=== PATIENT | male | born 1985 | race Caucasian/White ===

== ENCOUNTER 2017-10-26 16:03 | Inpatient (IN) | payer MEDICAID ==
[~2017-10-26] VITALS: Ht 172.7 cm; Wt 195.5 kg
[2017-10-26] VITALS: BP 114/54
[2017-10-26 16:13] VITALS: BP 136/65
--- NOTE | 2017-10-26 16:20 | NUR ---
32/M BIB SELF C/O INTERMITENT NON PRODUCTIVE COUGH X 4DAYS. REFERRED BY [facility] D/T LOW SPO2 CONCERNED FOR POSSIBLE PNA, HEMOPTYSIS STARTED ON TUESDAY TIL TUESDAY; DENIES HEMOPTYSIS TODAY; DENIES SOB, OR CP.DENIES N/V/D; SKIN IS PINK/WARM/DRY; AAOX4 WITH EVEN AND STEADY GAIT; LUNGS CLEAR BL. PATIENT STATES PAIN OF 0/10 AT THIS TIME. PATIENT POSITIONED FOR COMFORT; HOB ELEVATED; BEDRAILS UP X2; BED DOWN. ER MD MADE AWARE OF PT STATUS.
--- NOTE | 2017-10-26 16:20 | NUR ---
Note undone in EDM - 10/26/17 at 1645 by [email or web address] /M BIB SELF C/O INTERMITENT NON PRODUCTIVE COUGH X 4DAYS. REFERRED BY [facility] D/T LOW SPO2 CONCERNED FOR POSSIBLE PNA, HEMOPTYSIS STARTED ON TUESDAY TIL TUESDAY; DENIES HEMOPTYSIS TODY; DENIES SOB, OR CP. DENIES N/V/D; SKIN IS PINK/WARM/DRY; AAOX4 WITH EVEN AND STEADY GAIT; LUNGS CLEAR BL. PATIENT STATES PAIN OF 0/10 AT THIS TIME. PATIENT POSITIONED FOR COMFORT; HOB ELEVATED; BEDRAILS UP X2; BED DOWN. ER MADE AWARE OF PT STATUS.
--- NOTE | 2017-10-26 16:44 | NUR ---
Patient being evaluated by DR GARCIA at bedside.
--- NOTE | 2017-10-26 17:05 | NUR ---
LAB AT BEDSIDE.
[2017-10-26 17:17] LABS: BASOPHILS # (AUTO) 0.9 K/uL (0.00-0.22); EOSINOPHILS # (AUTO) 0.2 K/uL (0-0.4); HEMATOCRIT 45.7 % (36-52); HEMOGLOBIN 14.7 g/dL (12.0-18.0); LYMPHOCYTES # (AUTO) 2.5 K/uL (2.0-11.5); MEAN CORPUSCULAR HEMOGLOBIN 25 pg (27-31); MEAN CORPUSCULAR HGB CONC 32 g/dL (33-37); MEAN CORPUSCULAR VOLUME 77 fL (80-94); MONOCYTES # (AUTO) 0.9 K/uL (0.8-1.0); NEUTROPHILS # (AUTO) 14.8 K/uL (1.8-7.7); PLATELET COUNT (AUTO) 331 K/uL (140-450); RED BLOOD CELL COUNT(AUTO) 5.92 MIL/uL (4.20-6.10); RED CELL DISTRIBUTION WIDTH 14.9 % (11.6-13.7); WHITE BLOOD COUNT (AUTO) 19.3 K/uL (4.8-10.8)
--- NOTE | 2017-10-26 17:20 | NUR ---
X RAY AT BEDSIDE
[2017-10-26 17:28] LABS: PROTHROMBIN TIME 11.2 secs (10.8-13.4)
[2017-10-26 17:30] LABS: APPEARANCE,URINE CLEAR (CLEAR); BILIRUBIN,URINE NEGATIVE (NEGATIVE); BLOOD, URINE NEGATIVE (NEGATIVE); COLOR,URINE YELLOW (YELLOW); LEUKOCYTE ESTERASE ,URINE NEGATIVE (NEGATIVE); NITRITE, URINE NEGATIVE (NEGATIVE); PH,URINE 6.5 (5.0-9.0); UGLUCOSE NEGATIVE (NEGATIVE)
[2017-10-26] MEDS ORDERED: AZITHROMYCIN 500 MG in DEXTROSE 5% 250 ML IV ONE (17:30)
[2017-10-26 17:33] LABS: ALBUMIN 2.8 g/dL (3.4-5.0); ANION GAP 12.5 (8-16); CARBON DIOXIDE 27.1 mmol/L (21-32); CREATININE 0.9 mg/dL (0.7-1.3); POTASSIUM 3.6 mmol/L (3.5-5.1); TOTAL BILIRUBIN 0.7 mg/dL (0.0-1.0)
[2017-10-26] MEDS ORDERED: cefTRIAXone 1,000 MG VIAL ONE (17:34)
[2017-10-26] MEDS ORDERED: AZITHROMYCIN 500 MG INJ VIAL IV ONE (17:34)
[2017-10-26] MEDS ORDERED: ONDANSETRON 4 MG/2 ML VIAL IM/IVP PRN (17:40)
[2017-10-26] MEDS ORDERED: HYDROcodone/APAP 7.5/325 MG 1 TAB PO PRN (17:40)
[2017-10-26] MEDS ORDERED: DOCUSATE SODIUM 100 MG GELCAP PO PRN (17:40)
[2017-10-26] MEDS ORDERED: ACETAMINOPHEN 325 MG TAB PO PRN (17:40)
[2017-10-26] MEDS ORDERED: IPRATROPIUM 0.02% 0.5 MG/2.5 ML NEBU INH PRN (17:50)
[2017-10-26] MEDS ORDERED: ALBUTEROL 0.083% 2.5 MG/3 ML NEBU INH PRN (17:50)
[2017-10-26] MEDS ORDERED: ASPIRIN 325 MG TAB PO ONE (17:55)
[2017-10-26] MEDS ORDERED: IPRATROPIUM 0.02% 0.5 MG/2.5 ML NEBU INH SCH (18:00)
--- NOTE | 2017-10-26 18:20 | NUR ---
RECEIVED PATIENT VIA GURNEY FROM ER. GOT BEDSIDE REPORT FROM [employer] SPECIALIST. PATIENT IS AMBULATORY, WALKED FROM [facility] TO BED. PATIENT IS ON 2 L NASAL CANNULA, NO SIGNS AND SYMPTOMS OF ACUTE RESPIRATORY DISTRESS NOTED AT THIS TIME. HAS IV TO RIGHT HAND 20G. CURRENTLY INFUSING ROCEPHIN. ORIENTED PATIENT TO THE ROOM. EXPLAINED CALL LIGHT TO HIM AND HE VERBALIZED UNDERSTANDING. BED IN LOWEST POSITION, SIDE RAILS UP X2, CALL LIGHT WITHIN REACH. MRSA SWAB DONE. WILL CONTINUE TO MONITOR.
--- NOTE | 2017-10-26 18:25 | NUR ---
Note sandy in ED - 10/26/17 at 1826 by [facility] Patient will be admitted to care of DR DAVIS. Admited to TELE. Will go to [id number]. Belongings list completed. Report to DIDI SALTER.
--- NOTE | 2017-10-26 18:26 | NUR ---
Patient will be admitted to care of DR DAVIS. Admited to TELE. Will go to [id number]. Belongings list completed. Report to DIDI SALTER.
--- NOTE | 2017-10-26 18:26 | NUR ---
Note sandy in ED - 10/26/17 at 1828 by [facility] Patient will be admitted to care of DR DAVIS. Admited to TELE. Will go to [id number]. Belongings list completed. Report to DIDI SALTER.
--- NOTE | 2017-10-26 18:26 | NUR ---
Note sandy in ED - 10/26/17 at 1827 by [facility] Patient will be admitted to care of DR DAVIS. Admited to TELE. Will go to [id number]. Belongings list completed. Report to DIDI SALTER.
[2017-10-26 18:30] LABS: FREE T4 (FREE THYROXINE) 1.06 ng/dL (0.76-1.46); MAGNESIUM 2.1 mg/dL (1.8-2.4); PHOSPHORUS 2.8 mg/dL (2.5-4.9); THYROID STIMULATING HORMONE 2.34 uIU/mL (0.34-3.74)
[2017-10-26] MEDS ORDERED: ALBUTEROL SULFATE/IPRATROPIU 3 ML SOL IH PRN (19:00)
[2017-10-26] MEDS ORDERED: ALBUTEROL 0.083% 2.5 MG/3 ML NEBU INH SCH (19:00)
--- NOTE | 2017-10-26 19:10 | NUR ---
ENDORSED PATIENT TO IRRIGATION SUPERVISOR RN FOR CONTINUITY OF CARE. PATIENT IN STABLE CONDITION.
--- NOTE | 2017-10-26 19:15 | NUR ---
RECEIVED PATIENT ON BED WITH NC ON AND IV ON THE RIGHT HAND RUNNING CONTINUOUSLY . ROUTINE ADMISSION DONE. PATIENT ABLE TO WALK TO THE BATHROOM. NO SIGN OF DISTRESS AT THIS TIME. WILL CONTINUE TO MONITOR
--- NOTE | 2017-10-26 19:40 | NUR ---
PATIENT ASKING WANT TO SIT ON THE CHAIR AND PATIENT ABLE TO TRANSFER BY HIMSELF WITH OUT ASSIST. V/S TAKEN AND RECORDED. WILL CONTINUE TO MONITOR.
[2017-10-26] MEDS ORDERED: LORazepam 2 MG/ML VIAL IVP PRN (20:20)
[2017-10-26] MEDS: NACL 0.9% 1,000 ML IV SCH (21:04)
[2017-10-26 21:14] VITALS: BP 105/72
[2017-10-26 21:54] VITALS: BP 105/72
--- NOTE | 2017-10-26 22:36 | NUR ---
SEEN PATIENT ASLEEP ON BED ON SEMI MELTON POSITION WITH NC 2L . IV INFUSING WELL. NO SIGN OF DISTRESS AT THIS TIME.
[2017-10-27] VITALS: BP 114/54
[2017-10-27] MEDS: ALBUTEROL SULFATE/IPRATROPIU 3 ML SOL IH SCH ×5 (00:28→23:49)
--- NOTE | 2017-10-27 00:49 | NUR ---
SEEN PATIENT ON BED HAVING BREATHING TX WITH THE RT . BED IN LOW POSITION, CALL LIGHTS WITHIN REACH, SIDE RAILS 2X. WILL CONTINUE TO MONITOR.
--- NOTE | 2017-10-27 02:12 | NUR ---
CALLED DR. PERKINS ABOUT THE TROPONIN RESULT WHICH IS 0.143. NO ORDERS MADE.
--- NOTE | 2017-10-27 03:55 | NUR ---
V/S TAKEN AND RECORDED. PATIENT ON NC 2L, IV INFUSING WELL. LOW BED POSITION, CALL LIGHTS WITHIN REACH. NO SIGN OF ACUTE RESPIRATORY DISTRESS. WILL CONTINUE TO MONITOR.
[2017-10-27 04:01] VITALS: BP 126/70
--- NOTE | 2017-10-27 05:52 | NUR ---
CALLED DR. PERKINS TO ORDER SPUTUM CULTURE.
--- NOTE | 2017-10-27 06:10 | NUR ---
SPUTUM COLLECTED BUT LAB REJECTED IT AND PATIENT GAVE A NEW SPECIMEN BOTTLE WITH LABEL. INSTRUCTED PATIENT TO SPIT MORE SPUTUM AND VERBALIZED UNDERSTANDING.
[2017-10-27 06:29] LABS: BASOPHILS # (AUTO) 0.4 K/uL (0.00-0.22); EOSINOPHILS # (AUTO) 0.5 K/uL (0-0.4); EOSINOPHILS % (AUTO) 2.7 % (0.0-4.0); HEMATOCRIT 45.9 % (36-52); HEMOGLOBIN 14.1 g/dL (12.0-18.0); LYMPHOCYTES # (AUTO) 2.3 K/uL (2.0-11.5); LYMPHOCYTES % (AUTO) 13.1 % (20.5-51.1); MEAN CORPUSCULAR HEMOGLOBIN 24 pg (27-31); MEAN CORPUSCULAR HGB CONC 31 g/dL (33-37); MEAN CORPUSCULAR VOLUME 79 fL (80-94); MONOCYTES # (AUTO) 1.1 K/uL (0.8-1.0); MONOCYTES % (AUTO) 6.1 % (1.7-9.3); NEUTROPHILS # (AUTO) 13.4 K/uL (1.8-7.7); NEUTROPHILS % (AUTO) 76.1 % (42.2-75.2); PLATELET COUNT (AUTO) 357 K/uL (140-450); RED BLOOD CELL COUNT(AUTO) 5.83 MIL/uL (4.20-6.10); RED CELL DISTRIBUTION WIDTH 15.1 % (11.6-13.7)
[2017-10-27 06:47] LABS: CARBON DIOXIDE 25.5 mmol/L (21-32); CREATININE 0.9 mg/dL (0.7-1.3); POTASSIUM 3.5 mmol/L (3.5-5.1)
[2017-10-27 06:48] LABS: MAGNESIUM 2.2 mg/dL (1.8-2.4); PHOSPHORUS 3.9 mg/dL (2.5-4.9)
--- NOTE | 2017-10-27 07:10 | NUR ---
ENDORSED PATIENT TO AM SHIFT RN FOR CONTINUITY OF CARE. PATIENT IN STABLE CONDITION.
--- NOTE | 2017-10-27 07:22 | NUR ---
RECEIVED PATIENT REPORT AT BEDSIDE FROM NIGHTSHIFT NURSE. PATIENT IS SITTING ON CHAIR ON THE RIGHT SIDE OF THE BED. PATIENT APPEARS TACHYPNEIC AT 22 RESPIRATIONS AT THIS TIME. INSTRUCTED PATIENT TO TAKE DEEP BREATHS. PATIENT SHOWS NO SIGNS OF RESPIRATORY DISTRESS OR DEPRESSION. PATIENT SKIN COLOR IS WITHIN NORMAL LIMITS. PATIENT SHOWS NO SIGNS OF PAIN AT THIS TIME. WILL CONTINUE TO MONITOR PATIENT.
[2017-10-27 08:05] LABS: WHITE BLOOD COUNT (AUTO) 17.7 K/uL (4.8-10.8)
[2017-10-27 08:08] VITALS: BP 132/74
[2017-10-27] MEDS: MULTIVITAMIN 1 TAB PO SCH (08:32)
[2017-10-27] MEDS: FOLIC ACID 1 MG TAB PO SCH (08:33)
[2017-10-27] MEDS: AZITHROMYCIN 250 MG TAB PO SCH (08:33)
[2017-10-27] MEDS: THIAMINE 100 MG TAB PO SCH (08:33)
--- NOTE | 2017-10-27 08:41 | NUR ---
PATIENT HAS BEEN SCREENED AND CATEGORIZED HIGH NUTRITION RISK. PATIENT WILL BE SEEN WITHIN 1-2 DAYS OF ADMISSION. 10/26/18-10/27/[address]
--- NOTE | 2017-10-27 10:08 | NUR ---
PATIENT SITTING AT BEDSIDE WITH PATIENT FAMILY MEMBER AT BEDSIDE. PATIENT IS OFF OXYGEN AND TOLERATING WELL. WILL CONTINUE TO MONITOR PATIENT.
[2017-10-27] MEDS: NACL 0.9% 1,000 ML IV SCH (10:20)
--- NOTE | 2017-10-27 10:30 | NUR ---
O2 SATURATION NOTED AT 92% AT ROOM AIR. PATIENT AMBULATED AROUND THE MED-SURG / TELEMETRY UNIT TWICE. PATIENT IS AT 91% AT REST AT ROOM AIR. WILL CONTINUE TO MONITOR PATIENT.
[2017-10-27 12:00] VITALS: BP 138/78
--- NOTE | 2017-10-27 12:30 | NUR ---
PATIENT FAMILY AT BEDSIDE. PATIENT RESPIRATIONS SHOWS NO SIGNS OF RESPIRATORY DISTRESS OR DEPRESSION. NO COMPLAINTS OF PAIN. WILL CONTINUE TO MONITOR PATIENT.
--- NOTE | 2017-10-27 13:08 | NUR ---
FOUND PT ON ROOM AIR SPO2 93%. PT NOT SOB AND NOT IN RESPIRATORY DISTRESS.
--- NOTE | 2017-10-27 13:30 | NUR ---
10/27/2017 RD INITIAL ASSESSMENT COMPLETED PLEASE REFER TO NUTRITION ASSESSMENT UNDER CARE ACTIVITY FOR ESTIMATED NUTRITIONAL NEEDS. PATIENT TO RECEIVE A GENERALLY HEALTHY REGULAR DIET WHILE IN THIS HOSPITAL. PT TO RECEIVE REFERRAL TO [facility]/CLASS (COMPLETED) RD TO FOLLOW-UP IN 2-3 DAYS PATIENT IS HIGH RISK. ZANE MACDONALD RD
--- NOTE | 2017-10-27 14:29 | NUR ---
CM NOTE INITIAL REVIEW FOR CRITERIA DONE
--- NOTE | 2017-10-27 14:44 | NUR ---
PATIENT IS SITTING ON A CHAIR. PATIENT BREATHING IS WITHIN NORMAL LIMITS. PATIENT'S O2 SATURATION IS 92% ON ROOM AIR. WILL CONTINUE TO MONITOR PATIENT.
--- NOTE | 2017-10-27 15:50 | NUR ---
PATIENT WATCHING TELEVISION WHILE SITTING ON CHAIR. PATIENT SHOWS NO SIGNS OF RESPIRATORY DISTRESS OR RESPIRATORY DEPRESSION. NO SIGNS OF PAIN AT THIS TIME. WILL CONTINUE TO MONITOR PATIENT.
[2017-10-27 16:00] VITALS: BP 136/79
--- NOTE | 2017-10-27 17:20 | NUR ---
PATIENT FAMILY AT BEDSIDE. PATIENT BREATHING IS WITHIN NORMAL LIMITS AT THIS TIME. PATIENT'S O2 SATURATION IS AT 93% AT THIS TIME. WILL CONTINUE TO MONITOR PATIENT.
--- NOTE | 2017-10-27 19:05 | NUR ---
GAVE REPORT TO NIGHTSHIFT NURSE AT BEDSIDE. PATIENT IS IN STABLE CONDITION.
--- NOTE | 2017-10-27 19:10 | NUR ---
RECEIVED PATIENT SITTING ON THE CHAIR WITH NC 2L ON. IV INFUSING WELL. NO SIGN OF ACUTE RESPIRATORY DISTRESS NOTED AT THIS TIME. WILL CONTINUE TO MONITOR.
[2017-10-27 20:00] VITALS: BP 116/58
[2017-10-27 20:21] LABS: BARBITURATE, URINE NEG. ng/ml (NEG <=200); BENZODIAZEPINE, URINE NEG. ng/mL (NEG <=200); CANNABINOID, URINE NEG. ng/mL (NEG <=50); COCAINE, URINE NEG. ng/mL (NEG <=300); OPIATE, URINE NEG. ng/mL (NEG <=2000); PHENCYCLIDINE SCREEN,URINE NEG. ng/mL (NEG <=25)
--- NOTE | 2017-10-27 20:30 | NUR ---
SEEN PATIENT SITTING ON THE CHAIR USING SPIROMETER MACHINE WITH NC 2L IN PLACE. PATIENT TALKING TO HIS FAMILY MEMBERS. CALL LIGHT WITHIN REACH . NO SIGN OF DISTRESS NOTED AT THIS TIME.
--- NOTE | 2017-10-27 20:50 | NUR ---
RECEIVED A CALL FROM [employer] ABOUT THE TROPONIN RESULT .
--- NOTE | 2017-10-27 21:04 | NUR ---
SPOKE TO DR. WOODARD ABOUT THE TROPONIN RESULT. HE'S SAID HE WILL REVIEW HIS CHART.
--- NOTE | 2017-10-27 21:18 | NUR ---
RECEIVED A CALL FROM LAB THAT THE SPUTUM COLLECTED THIS AM IS REJECTED. GAVE PATIENT A NEW SPECIMEN CONTAINER WITH LABEL.
--- NOTE | 2017-10-27 22:20 | NUR ---
SEEN PATIENT ASLEEP ON BED IN SEMI FOWLERS POSITION. CALL LIGHTS WITHIN REACH. BED IN LOW POSITION. SIDE RAILS 2X. NO ACUTE RESPIRATORY DISTRESS NOTED AT THIS TIME. IV INFUSING WELL.
[2017-10-28 00:10] VITALS: BP 118/43
--- NOTE | 2017-10-28 00:30 | NUR ---
PATIENT CALLED TO DISCONNECT HIS IV TO GO TO THE BATHROOM. PATIENT AMBULATE WITH NO PROBLEM. MADE HIS BED AND GAVE A WARM BLANKET PER PATIENT REQUEST. NO SIGN OF DISTRESS NOTED. WILL CONTINUE TO MONITOR.
[2017-10-28] MEDS: NACL 0.9% 1,000 ML IV SCH ×2 (03:00→05:42)
[2017-10-28 04:00] VITALS: BP 112/92
--- NOTE | 2017-10-28 05:30 | NUR ---
PATIENT SEEN LYING COMFORTABLE ON BED WITH IV INFUSING WELL. NO SIGN OF DISTRESS NOTED. WILL CONTINUE TO MONITOR.
--- NOTE | 2017-10-28 07:12 | NUR ---
ENDORSED PATIENT TO AM SHIFT RN FOR CONTINUITY OF CARE. PATIENT IN STABLE CONDITION.
--- NOTE | 2017-10-28 07:15 | NUR ---
RECEIVED PATIENT REPORT AT BEDSIDE FROM NIGHTSHIFT NURSE. PATIENT IS SITTING ON CHAIR ON THE RIGHT SIDE OF THE BED. PATIENT BREATHING IS UNLABORED AT SYMMETRICAL AT THIS TIME. PATIENT SHOWS NO SIGNS OF RESPIRATORY DISTRESS OR DEPRESSION. PATIENT SHOWS NO SIGNS OF PAIN AT THIS TIME. WILL CONTINUE TO MONITOR PATIENT.
[2017-10-28 07:43] LABS: BASOPHILS # (AUTO) 0.3 K/uL (0.00-0.22); BASOPHILS % (AUTO) 1.7 % (0.0-2.0); EOSINOPHILS # (AUTO) 0.4 K/uL (0-0.4); EOSINOPHILS % (AUTO) 2.1 % (0.0-4.0); HEMATOCRIT 44.6 % (36-52); HEMOGLOBIN 14.1 g/dL (12.0-18.0); LYMPHOCYTES # (AUTO) 2.2 K/uL (2.0-11.5); LYMPHOCYTES % (AUTO) 11.7 % (20.5-51.1); MEAN CORPUSCULAR HEMOGLOBIN 25 pg (27-31); MEAN CORPUSCULAR HGB CONC 32 g/dL (33-37); MEAN CORPUSCULAR VOLUME 78 fL (80-94); MONOCYTES # (AUTO) 0.8 K/uL (0.8-1.0); MONOCYTES % (AUTO) 4.2 % (1.7-9.3); NEUTROPHILS # (AUTO) 15.1 K/uL (1.8-7.7); NEUTROPHILS % (AUTO) 80.3 % (42.2-75.2); PLATELET COUNT (AUTO) 350 K/uL (140-450); RED BLOOD CELL COUNT(AUTO) 5.75 MIL/uL (4.20-6.10); RED CELL DISTRIBUTION WIDTH 14.9 % (11.6-13.7)
[2017-10-28] MEDS: ALBUTEROL SULFATE/IPRATROPIU 3 ML SOL IH SCH ×2 (07:53→11:49)
[2017-10-28 08:00] VITALS: BP 122/65
[2017-10-28 08:16] LABS: ANION GAP 10.5 (8-16); CARBON DIOXIDE 29.4 mmol/L (21-32); POTASSIUM 3.9 mmol/L (3.5-5.1)
[2017-10-28] MEDS: FOLIC ACID 1 MG TAB PO SCH (08:37)
[2017-10-28] MEDS: MULTIVITAMIN 1 TAB PO SCH (08:37)
[2017-10-28] MEDS: AZITHROMYCIN 250 MG TAB PO SCH (08:37)
[2017-10-28] MEDS: THIAMINE 100 MG TAB PO SCH (08:37)
[2017-10-28 08:52] LABS: PHOSPHORUS 5.2 mg/dL (2.5-4.9)
[2017-10-28 08:54] LABS: MAGNESIUM 2.2 mg/dL (1.8-2.4)
--- NOTE | 2017-10-28 09:20 | NUR ---
PATIENT SITTING ON CHAIR AT THIS TIME. PATIENT RESPIRATIONS ARE WITHIN NORMAL LIMITS. NO COMPLAINTS OF PAIN. WILL CONTINUE TO MONITOR PATIENT.
[2017-10-28 09:25] LABS: WHITE BLOOD COUNT (AUTO) 18.8 K/uL (4.8-10.8)
[2017-10-28] MEDS ORDERED: LACT1.4C PO ×2 (10:14→10:37)
[2017-10-28] MEDS ORDERED: LEVO750T2 PO (10:14)
[2017-10-28] MEDS ORDERED: AZIT250T3 PO (10:37)
--- NOTE | 2017-10-28 12:20 | NUR ---
PATIENT SIGNED AND UNDERSTOOD ALL DISCHARGE INSTRUCTIONS. DISCONTINUED IV LINE AND INTACT. APPOINTMENT SETTER REMOVED FROM PATIENT. PATIENT LEFT WITH ALL BELONGINGS, DISCHARGE INSTRUCTIONS, AND PRESCRIPTIONS IN STABLE CONDITION WITH FAMILY MEMBER.
[2017-10-28 12:22] LABS: FOLIC ACID 5.6 ng/mL (>3.0)
== END 2017-10-28 12:20 | disposition home or self-care (01) | DRG 720 ==
LOC: MED 16:03 → MTU 17:49
PROVIDERS: ADMIT Family Medicine Sports Medicine; ATTEND Family Medicine Sports Medicine
DX: A41.9 Sepsis, unspecified organism (principal); J96.21 Acute and chronic respiratory failure with hypoxia; E43 Unspecified severe protein-calorie malnutrition; I24.8 Other forms of acute ischemic heart disease; J18.1 Lobar pneumonia, unspecified organism; I42.0 Dilated cardiomyopathy; Z68.44 Body mass index [BMI] 60.0-69.9, adult; E11.65 Type 2 diabetes mellitus with hyperglycemia; I25.10 Atherosclerotic heart disease of native coronary artery without angina pectoris; I51.7 Cardiomegaly; R04.2 Hemoptysis; Y90.9 Presence of alcohol in blood, level not specified; E66.01 Morbid (severe) obesity due to excess calories; F10.10 Alcohol abuse, uncomplicated; D75.89 Other specified diseases of blood and blood-forming organs; Z90.49 Acquired absence of other specified parts of digestive tract; Z82.5 Family history of asthma and other chronic lower respiratory diseases; Z83.3 Family history of diabetes mellitus; Z82.3 Family history of stroke
CPT/HCPCS: 36415; 36600; 71045; 80048; 80053; 80305; 81003; 82150; 82607; 82728; 82746; 82803; 83036; 83540; 83605; 83690; 83735; 83880; 84100; 84436; 84439; 84443; 84479; 84484; 85025; 85045; 85379; 85610; 87040; 87081; 87086; 87205; 87804; 93005; 94640; 96365; 99285; J0456; J0696; J7030; J7060; J7620

== ENCOUNTER 2018-11-09 17:49 | Emergency (ER) | payer MEDICAID, OTHER ==
[~2018-11-09] VITALS: Ht 175.3 cm; Wt 215.5 kg
[~2018-11-09 17:49] MED LIST: AZIT250T3 PO; LACT1.4C PO
[2018-11-09 18:25] VITALS: BP 156/98
--- NOTE | 2018-11-09 18:33 | NUR ---
PT TO ER BED 2
--- NOTE | 2018-11-09 18:37 | NUR ---
PT BIB SELF C/O EAR IRRITATION X4 MONTHS. PT REPORTS SLIGHT IRRITATION IN L EAR STATING "IT FEELS RAW". PT HAS BEEN TREATING IT WITH NEOMYCIN & POLYMYXIN B AND STATED THAT IT USED TO HEL, BUT HASN'T BEEN WORKING LATELY. PT ALSO STATES PURULENT BL EYE DRAINAGE FOR YEARS. VSS. ER TO SEE PT. MEDHX:NONE
[2018-11-09 19:40] VITALS: BP 155/94
--- NOTE | 2018-11-09 19:40 | NUR ---
Patient discharged with v/s stable. Written and verbal after care instructions given and explained. Patient alert, oriented and verbalized understanding of instructions. Ambulatory with steady gait. All questions addressed prior to discharge. ID band removed. Patient advised to follow up with PMD. Rx of POLYTRIM AND OFLOXACIN given. Patient educated on indication of medication including possible reaction and side effects. Opportunity to ask questions provided and answered.
== END 2018-11-09 19:40 | disposition home or self-care (01) ==
LOC: MED 17:49
DX: H66.92 Otitis media, unspecified, left ear (principal); H57.9 Unspecified disorder of eye and adnexa; Z79.899 Other long term (current) drug therapy
CPT/HCPCS: 99283

== ENCOUNTER 2019-05-06 14:12 | Emergency (ER) | payer OTHER ==
[~2019-05-06] VITALS: Ht 172.7 cm; Wt 204.1 kg
[2019-05-06 14:16] VITALS: BP 165/92
[2019-05-06] MEDS ORDERED: LIDOCAINE/EPI 2% 1:100000 20 ML VIAL INJ ONE (15:50)
[2019-05-06] MEDS ORDERED: IBUPROFEN 600 MG TAB PO ONE (15:55)
[2019-05-06 16:50] VITALS: BP 155/88
== END 2019-05-06 16:45 | disposition home or self-care (01) ==
LOC: MED 14:12
DX: S61.204A Unspecified open wound of right ring finger without damage to nail, initial encounter (principal); E11.9 Type 2 diabetes mellitus without complications; I10 Essential (primary) hypertension; Z90.49 Acquired absence of other specified parts of digestive tract; Z79.899 Other long term (current) drug therapy; Z79.2 Long term (current) use of antibiotics; W27.4XXA Contact with kitchen utensil, initial encounter; Y92.89 Other specified places as the place of occurrence of the external cause; Y93.89 Activity, other specified; Y99.8 Other external cause status
CPT/HCPCS: 29130; 90471; 90715; 99283; J2001

== ENCOUNTER 2019-05-08 13:16 | Emergency (ER) | payer OTHER ==
[~2019-05-08] VITALS: Ht 180.3 cm; Wt 201.8 kg
[2019-05-08 13:24] VITALS: BP 154/87
--- NOTE | 2019-05-08 13:29 | NUR ---
wait in er lobby for available room for md fitzgerald
--- NOTE | 2019-05-08 13:51 | NUR ---
PT TO ER BED 11
--- NOTE | 2019-05-08 14:00 | NUR ---
avulsion right 4th digit may 06, 2019 also requesting able to return to work note NEEDS A RECHECK hx--denies rx---none
--- NOTE | 2019-05-08 14:05 | NUR ---
LASHAWN DE LUNA AT BEDSIDE
[2019-05-08] MEDS ORDERED: BACITRACIN OINT 500 UNITS/GM PKT TP ONE (14:10)
[2019-05-08 14:20] VITALS: BP 154/87
[2019-05-08] MEDS ORDERED: NEOMYCIN/POLYMYXIN/BACITRACIN 0.9 GM/1 PKT TP ONE (14:27)
== END 2019-05-08 14:20 | disposition home or self-care (01) ==
LOC: MED 13:16
DX: S61.202A Unspecified open wound of right middle finger without damage to nail, initial encounter (principal); I10 Essential (primary) hypertension; E11.9 Type 2 diabetes mellitus without complications; Z90.89 Acquired absence of other organs; Z79.2 Long term (current) use of antibiotics; Z79.899 Other long term (current) drug therapy; W26.0XXA Contact with knife, initial encounter; Y93.89 Activity, other specified; Y92.89 Other specified places as the place of occurrence of the external cause; Y99.8 Other external cause status
CPT/HCPCS: 99283

== ENCOUNTER 2019-07-31 13:34 | Emergency (ER) | payer OTHER ==
[~2019-07-31] VITALS: Ht 172.7 cm; Wt 205.0 kg
[2019-07-31 14:10] VITALS: BP 178/100
--- NOTE | 2019-07-31 14:17 | NUR ---
Patient ambulated to chair A. RN evaluating patient.
--- NOTE | 2019-07-31 15:17 | NUR ---
34 Y/O MALE C/O LT EAR PAIN X2 WEEKS. PT STATES 5/10 PAIN AT THIS TIME ONLY TO LT EAR. DENIES DRAINAGE FROM EAR. PT STATES HE HAD A FEVER THIS MORNING WHEN HE WOKE UP, BUT AFEBRILE AT THIS TIME. PT CALM AND PLEASANT SITTING IN REMI. VSS MEDHX: DM, HTN ALLERGIES: NKA
[2019-07-31 15:44] VITALS: BP 178/100
--- NOTE | 2019-07-31 15:45 | NUR ---
Patient discharged with v/s stable. Written and verbal after care instructions given and explained. Patient alert, oriented and verbalized understanding of instructions. Ambulatory with steady gait. All questions addressed prior to discharge. ID band removed. Patient advised to follow up with PMD. Rx of IBURPROFEN AND CIPRODEX given. Patient educated on indication of medication including possible reaction and side effects. Opportunity to ask questions provided and answered.
== END 2019-07-31 15:45 | disposition home or self-care (01) ==
LOC: MED 13:34
DX: H60.92 Unspecified otitis externa, left ear (principal); E11.9 Type 2 diabetes mellitus without complications; I10 Essential (primary) hypertension; Z79.899 Other long term (current) drug therapy
CPT/HCPCS: 99283

== ENCOUNTER 2019-08-27 15:04 | Emergency (ER) | payer OTHER ==
[~2019-08-27] VITALS: Ht 172.7 cm; Wt 201.8 kg
[2019-08-27 15:26] VITALS: BP 198/102
--- NOTE | 2019-08-27 15:31 | NUR ---
PT TO CHAIR A
--- NOTE | 2019-08-27 15:45 | NUR ---
PT BACK FROM XRAY VIA W/C
--- NOTE | 2019-08-27 15:45 | NUR ---
34/M C/O LT LATERAL MALLEOUS PAIN X 1 WK S/P STEPPING OFF CURB SIDEWAYS. PAIN /. HAS BEEN WALKING BUT APPLYING LESS WEIGHT TO LT FOOT. STATES SWELLING. HX- DM & HTN, NON COMPLIANT W/ MEDS
--- NOTE | 2019-08-27 15:47 | NUR ---
PA JACQUES EVALUATING PT AT BEDSIDE
[2019-08-27] MEDS ORDERED: IBUPROFEN 600 MG TAB PO ONE (16:15)
--- NOTE | 2019-08-27 16:25 | NUR ---
Patient discharged with v/s stable. Written and verbal after care instructions given and explained. Patient alert, oriented and verbalized understanding of instructions. Ambulatory with steady gait. All questions addressed prior to discharge. ID band removed. Patient advised to follow up with PMD. Rx of IBUPROFEN 800MG given. Patient educated on indication of medication including possible reaction and side effects. Opportunity to ask questions provided and answered.
[2019-08-27 16:26] VITALS: BP 138/91
--- NOTE | 2019-08-27 16:31 | NUR ---
APPLIED SHAISTA WRAP TO LEFT ANKLE AND PT DEMONSTRATED PROPER USE OF CRUTCHES.
== END 2019-08-27 16:25 | disposition home or self-care (01) ==
LOC: MED 15:04
DX: S93.492A Sprain of other ligament of left ankle, initial encounter (principal); E11.9 Type 2 diabetes mellitus without complications; I10 Essential (primary) hypertension; Z79.899 Other long term (current) drug therapy; X50.1XXA Overexertion from prolonged static or awkward postures, initial encounter; Y93.89 Activity, other specified; Y92.89 Other specified places as the place of occurrence of the external cause; Y99.8 Other external cause status
CPT/HCPCS: 73610; 99283

== ENCOUNTER 2019-11-19 20:39 | Emergency (ER) | payer OTHER ==
[~2019-11-19] VITALS: Ht 172.7 cm; Wt 188.2 kg
[2019-11-19 20:49] VITALS: BP 147/99
--- NOTE | 2019-11-19 20:51 | NUR ---
PT TAKEN TO BED 2
--- NOTE | 2019-11-19 20:55 | NUR ---
PT 34 Y/O MALE BIB SELF FOR C/O COUGH AND SORE THROAT X 2 DAYS. PT AAO X4. RESPIRATIONS ARE EVEN AND UNLABORED. LUNG SOUNDS CLEAR A/P BILAT. DRY COUGH NOTED. AFEBRILE. DENIES N/V/D. VSS. DENIES PAIN. MEDHX: NONE ALLERGIES: NKA
[2019-11-19 21:33] VITALS: BP 147/99
--- NOTE | 2019-11-19 21:33 | NUR ---
Patient discharged with v/s stable. Written and verbal after care instructions given and explained. Patient alert, oriented and verbalized understanding of instructions. Ambulatory with steady gait. All questions addressed prior to discharge. ID band removed. Patient advised to follow up with PMD. Rx of AUGMENTIN, MICHELLE GROSSMAN given. Patient educated on indication of medication including possible reaction and side effects. Opportunity to ask questions provided and answered.
== END 2019-11-19 21:33 | disposition home or self-care (01) ==
LOC: MED 20:39
DX: J20.9 Acute bronchitis, unspecified (principal); E11.9 Type 2 diabetes mellitus without complications; I10 Essential (primary) hypertension; Z90.49 Acquired absence of other specified parts of digestive tract; Z79.899 Other long term (current) drug therapy
CPT/HCPCS: 99283